=== PATIENT | male | born 1940 | race Caucasian/White ===

== ENCOUNTER 2017-06-03 18:31 | Emergency (ER) | payer MEDICARE, OTHER ==
[~2017-06-03] VITALS: Ht 167.6 cm; Wt 79.4 kg
[~2017-06-03 18:31] MED LIST: ASPIRIN81 M1 PO; ATORVASTATIN CA80 M1 PO; GABAPENTIN400 M3 PO; GLUCOPHAGE500 M3 PO; HUMALOG100 UNITS/ SC; IRON160 M1 PO; LANTUS100 UNITS/ SC; LISINOPRIL2.5 M1 PO; POTASSIUM CHLOR PO
== END 2017-06-03 19:29 ==
LOC: EDMED 18:31
DX: H11.32 Conjunctival hemorrhage, left eye (principal); E11.9 Type 2 diabetes mellitus without complications; I10 Essential (primary) hypertension; Z86.73 Personal history of transient ischemic attack (TIA), and cerebral infarction without residual deficits; Z98.49 Cataract extraction status, unspecified eye; Z79.82 Long term (current) use of aspirin; Z79.899 Other long term (current) drug therapy